=== PATIENT | female | born 1965 | race Caucasian/White ===

== ENCOUNTER 2025-08-24 19:30 | Emergency (ER) | payer BC, SELFPAY ==
[2025-08-24] VITALS (22 sets, daily range): BP systolic 149–177; BP diastolic 74–92; PULSE 59–65; TEMP 36.6; O2SAT 95–99; BMI 40.6
--- NOTE | 2025-08-24 19:52 | PC.NURSE ---
this patient complains of lower back pain onset 1 moth ago. this patient ratliff snot recall doing anything 1 month ago to cause this lower back pain. this patient has been seen twice at urgent care for this lower back pain and used OTC for this pain. this patient's lower back pain 8/10 and radiates down both posterior legs. this patient voices no other complaints, needs and shows no signs of distress
--- NOTE | 2025-08-24 20:07 | ED_ITS ---
HPI HPI - Back Pain/Injury General Chief Complaint: Back Pain/Injury Stated Complaint: Back Pain Time Seen by Provider: 08/24/25 19:55 Source: patient Mode of arrival: walk-in History of Present Illness HPI Narrative: lower back pain. states pain radiating down both of her legs. No lower extremity weakness. No fever. No complaint of abdominal pain. States she has been off work due to right foot plantar fasciitis. States her foot is now better. Was seen in Urgent care 10 days ago for back pain and it improved after she was giving an injection Related Data Allergies Allergy/AdvReac Type Severity Reaction Status Date / Time No Known Drug Allergies Allergy Verified 08/24/25 19:41 Opioid HPI Opioid Management Most Recent Opioid Data: 2 Last Pain Scale 1 Today, 22:55 Last ED Pain Assessment Today, 22:55 Review of Systems 2 ROS0 Status of ROS 10 or more systems reviewed and unremark able except as noted in history and below PFSH PFSH Social History Little interest or pleasure in doing things: not at all Feeling down, depressed, or hopeless: not at all Exam Constitutional Vital Signs, click to edit/add: Last Vital Signs Temp 97.9 F 08/24/25 19:36 Pulse 59 L 08/24/25 22:55 Resp 18 08/24/25 22:55 BP 167/75 H 08/24/25 23:30 Pulse Ox 95 08/24/25 23:30 O2 Del Method Room Air 08/24/25 19:36 Common normals: no apparent distress, average body habitus, oriented x3, no limitations, healthy appearing, alert and well nourished [facility] Common normals: normocephalic and head/scalp atraumatic Eye Common normals: PERRL and EOMs intact bilaterally Respiratory Common normals: normal respiratory effort, no retractions, no use of accessory muscles and clear to auscultation bilaterally Cardio Common normals: regular rate, regular rhythm, S1 normal heart sound and S2 normal heart sound GI Common normals: Normal to inspection, nondistended, normoactive bowel sounds present, soft to palpation and non-tender Back & Pelvis Back image (female): 2 1. mild tenderness Extremity Common normals: normal to inspection and full ROM Neuro Common normals: oriented x3, CN's II-XII intact bilaterally, moves all extremities, no focal motor deficits and no sensory deficits noted Psych Appearance: grossly normal Course Vital Signs Vital signs: Vital Signs Temperature 97.9 F 08/24/25 19:36 Pulse Rate 65 08/24/25 19:36 Respiratory Rate 18 08/24/25 19:36 Blood Pressure 175/92 H 08/24/25 19:36 Pulse Oximetry 98 08/24/25 19:36 Oxygen Delivery Method Room Air 08/24/25 19:36 Temperature 97.9 F 08/24/25 19:36 Pulse Rate 59 L 08/24/25 22:55 Respiratory Rate 18 08/24/25 22:55 Blood Pressure 167/75 H 08/24/25 23:30 Pulse Oximetry 95 08/24/25 23:30 Oxygen Delivery Method Room Air 08/24/25 19:36 MDM - Back Pain/Injury MDM Narrative Medical decision making narrative: presents complaining of lower back pain radiating into both legs. No fever or leg weakness. Exam with only mild tenderness of her L-S spine. Normal gait. labs ordered along with xray of her L spine and medicated with solumedrol , toradol. mild elevation of sed rate at 32. CRP WNL xray with degenerative changes-extensive - of her lumbar spine. She is feeling better after treatment. UA pending UA WNL. patient is discharged in improved condition Lab Data Labs: Lab Results 08/24/25 08/24/25 Range/Units 20:40 22:20 WBC 9.4 (4.0-11.0) 10^3/uL RBC 5.30 (4.20-5.40) 10^6/uL Hgb 15.0 (12.0-16.0) g/dL Hct 44.8 (36.0-48.0) % MCV 84.5 (81.0-99.0) fL MCH 28.3 (26.7-34.0) pg MCHC 33.5 (29.9-35.2) g/dL RDW 12.9 (11.0-15.0) % Plt Count 316 (150-450) 10^3/uL MPV 10.9 (9.5-13.5) fL Neut % (Auto) 72.9 (43.0-75.0) % Lymph % (Auto) 20.0 L (20.5-60.0) % [place] % (Auto) 5.4 (1.7-12.0) % Eos % (Auto) 1.1 (0.9-7.0) % Baso % (Auto) 0.4 (0.2-2.0) % Neut # (Auto) 6.8 H (1.4-6.5) 10^3/uL Lymph # (Auto) 1.9 (1.2-3.8) 10^3/uL [place] # (Auto) 0.5 (0.3-0.8) 10^3/uL Eos # (Auto) 0.1 (0.0-0.7) 10^3/uL Baso # (Auto) 0.0 (0.0-0.1) 10^3/uL Abs Immat Gran (auto) 0.02 (0.00-0.03) 10^3/uL Imm/Tot Granulo (auto) 0.2 (0.0-0.5) % ESR 32 H (<=30) mm/hr Sodium 142 (136-145) mmol/L Potassium 3.9 (3.5-5.1) mmol/L Chloride 107 (98-107) mmol/L Carbon Dioxide 31.1 (21.0-32.0) mmol/L Anion Gap 7.8 BUN 20.0 H (7.0-18.0) mg/dL Creatinine 0.76 (0.55-1.02) mg/dL Est GFR ( Amer) >60 (>=60 mL/min/1.73m^2) Est GFR (Non-Af Amer) >60 (>=60 mL/min/1.73m^2) BUN/Creatinine Ratio 26.3 Glucose 100 (74-106) mg/dL Lactate 0.8 (0.4-2.0) mmol/L Calcium 9.9 (8.5-10.1) mg/dL C-Reactive Protein <0.50 (<=0.50) mg/dL Urine Color Lt. yellow (YELLOW) Urine Clarity Clear (CLEAR) Urine pH 6.0 (5.0-9.0) Ur Specific [place] 1.015 (1.005-1.025) Urine Protein Negative (NEG/TRACE) mg/dL Urine Glucose (UA) Negative (NEGATIVE) mg/dL Urine Ketones Negative (NEGATIVE) mg/dL Urine Occult Blood Negative (NEGATIVE) Urine Nitrite Negative (NEGATIVE) Urine Bilirubin Negative (NEGATIVE) Urine Urobilinogen 0.2 (0.2-1.0) EU/dL Ur Leukocyte Esterase Negative (NEGATIVE) Urine RBC None seen (0-2) #/HPF Urine WBC None seen (NONE SEEN) #/HPF Ur Squamous Epith Cells Rare (NONE/RARE) #/LPF Ur Transition Epith Cell Rare A (NONE SEEN) #/LPF Urine Crystals None seen (None Seen) #/HPF Urine Bacteria None seen (NONE SEEN) #/HPF Urine Casts None seen (NONE SEEN) #/LPF Urine Mucus None seen (NONE SEEN) Ur Culture Indicated? No Imaging Data Chest x-ray: Radiologist's impression: ITS Impressions Lumbar Spine X-Ray 08/24/25 20:32 IMPRESSION: Extensive lower lumbar degenerative change Impression dictated by: Claudio Oconnor M.D. 08/24/2025 9:57 PM Dictation Location: [facility] Electronically authenticated by: [id number] Y Date: 08/24/2025 21:57 Discharge Plan Discharge Chief Complaint: Back Pain/Injury Clinical Impression: Strain of lumbar region Patient Disposition: Home, Self-Care Print Language: [place] Instructions: Back Pain (ED) Additional Instructions: follow up with your doctor in 2-3 days for recheck Referrals: Alma Will RN [Primary Care Provider] - 1 week
--- NOTE | 2025-08-24 20:32 | XR_ITS ---
The [address] [address] Patient Name: EDITH HICKS MRN: [id number] date: 1965 Sex: F Assigned Patient Location: ER Current Patient Location: ER Accession/Order Number: [id number] Exam Date: 08/24/2025 21:30 Report Date: 08/24/2025 21:57 At the request of: ZIYAD MARIEE MD Procedure: XR lumbar spine 2-3V 2 views lumbar spine HISTORY: Lower back pain Adequate lumbar lordosis. No scoliosis. Extensive L4-5 and L5-S1 spondylosis. Lower lumbar facet degeneration. No acute fracture. XR/XR lumbar spine 2-3V IMPRESSION: Extensive lower lumbar degenerative change Impression dictated by: Claudio Oconnor M.D. 08/24/2025 9:57 PM Dictation Location: [place] [address] Electronically authenticated by: [id number] Y Date: 08/24/2025 21:57
[2025-08-24 20:52] LABS: Hematocrit 44.8 % (36.0-48.0); Hemoglobin 15.0 g/dL (12.0-16.0); Immature Granulocytes Abs Auto 0.02 10^3/uL (0.00-0.03); Immature Granulocytes Pct Auto 0.2 % (0.0-0.5); Lymphocytes Absolute Auto 1.9 10^3/uL (1.2-3.8); Mean Corpuscular HGB Conc 33.5 g/dL (29.9-35.2); Mean Corpuscular Hemoglobin 28.3 pg (26.7-34.0); Mean Corpuscular Volume 84.5 fL (81.0-99.0); Platelet Count 316 10^3/uL (150-450); Red Blood Count 5.30 10^6/uL (4.20-5.40); White Blood Count 9.4 10^3/uL (4.0-11.0)
[2025-08-24] MEDS: METHYLPREDNISOLONE SOD SUCC PF 125 MG/2 ML VIAL IVP (20:54)
[2025-08-24] MEDS: KETOROLAC TROMETHAMINE 30 MG/ML VIAL IVP (20:54)
[2025-08-24] MEDS: MAGNESIUM SULFATE IN WATER 2 GM/50 ML PREMIX IV (20:54)
[2025-08-24 21:06] LABS: Anion Gap 7.8; Blood Urea Nitrogen 20.0 mg/dL (7.0-18.0); Calcium 9.9 mg/dL (8.5-10.1); Carbon Dioxide 31.1 mmol/L (21.0-32.0); Chloride 107 mmol/L (98-107); Estimated GFR (African America >60 (>=60 mL/min/1.73m^2); Estimated GFR (Non-African Ame >60 (>=60 mL/min/1.73m^2); Glucose 100 mg/dL (74-106); Potassium 3.9 mmol/L (3.5-5.1); Sodium 142 mmol/L (136-145)
[2025-08-24 21:12] LABS: Lactate/Lactic Acid 0.8 mmol/L (0.4-2.0)
[2025-08-24 22:50] LABS: Glucose Urine UA NEGATIVE (NEGATIVE)
[2025-08-24 22:56] LABS: Cast Seen? NONE SEEN #/LPF (NONE SEEN); Crystals Seen? None Seen #/HPF (None Seen); Urine Culture Indicated NO
--- NOTE | 2025-08-24 23:42 | PC.NURSE ---
i gave this patient verbal and written discharge orders along with 1 Rx and this patient voices yes to understanding these. at time of discharge this patient voices no concerns, needs and shows no signs of distress
== END 2025-08-24 23:41 | disposition home or self-care (01) ==
PROVIDERS: Emergency Provider Internal Medicine
DX: S39.012A Strain of muscle, fascia and tendon of lower back, initial encounter (principal); X58.XXXA Exposure to other specified factors, initial encounter
CPT/HCPCS: 36415; 72100; 80048; 81001; 83605; 85025; 85652; 86140; 96365; 96375; 99284; 99285; J1885; J2919; J3475

== ENCOUNTER 2025-08-27 11:51 | Outpatient (RCR) | payer BC, SELFPAY | END 2025-09-24 06:55 | disposition home or self-care (01) | LOC: PT 11:51 | DX: M54.16 Radiculopathy, lumbar region (principal); Z87.39 Personal history of other diseases of the musculoskeletal system and connective tissue | CPT/HCPCS: 97110; 97161 ==